=== PATIENT | male | born 1970 | race African-American/Black ===

== ENCOUNTER 2019-07-03 01:29 | Emergency (ER) | payer MEDICAID ==
[~2019-07-03] VITALS: Ht 190.5 cm; Wt 127.0 kg
[2019-07-03 04:27] VITALS: BP 136/82
== END 2019-07-03 04:29 | disposition home or self-care (01) ==
LOC: ER 01:29
DX: S39.012A Strain of muscle, fascia and tendon of lower back, initial encounter (principal); M54.6 Pain in thoracic spine; I10 Essential (primary) hypertension; Z88.0 Allergy status to penicillin; Z91.041 Radiographic dye allergy status; Z90.49 Acquired absence of other specified parts of digestive tract; V43.62XA Car passenger injured in collision with other type car in traffic accident, initial encounter; Y93.89 Activity, other specified; Y92.488 Other paved roadways as the place of occurrence of the external cause
CPT/HCPCS: 71046; 72110; 99283